=== PATIENT | male | born 1995 | race Caucasian/White ===

== ENCOUNTER 2018-10-06 10:51 | Day surgery (SDC) | payer BC, OTHER ==
[~2018-10-06] VITALS: Ht 185.4 cm; Wt 66.5 kg
[2018-10-06 11:27] VITALS: BP 111/69
[2018-10-06] MEDS ORDERED: LACTATED RINGERS 1,000 ML IV SCH (11:29)
[2018-10-06] MEDS ORDERED: ACETAMINOPHEN 500 MG TABLET PO ONE (11:30)
[2018-10-06] MEDS ORDERED: ONDANSETRON ODT 8 MG PO ONE (11:30)
[2018-10-06] MEDS ORDERED: MIDAZOLAM 1 MG/ML, 2ML ONE (12:52)
[2018-10-06] MEDS ORDERED: FENTANYL PF 250 MCG/5ML ONE (12:52)
[2018-10-06] MEDS ORDERED: LIDOCAINE-MPF 2% ,5ML ONE (12:54)
[2018-10-06] MEDS ORDERED: EPINEPHRINE 1 MG/ML, 1ML ONE (12:54)
[2018-10-06] MEDS ORDERED: CEFAZOLIN 1,000 MG ONE ×2 (12:54)
[2018-10-06] MEDS ORDERED: PROPOFOL 10 MG/ML, 20ML ONE (12:54)
[2018-10-06] MEDS ORDERED: DEXAMETHASONE 4 MG/ML, 1ML ONE ×2 (12:54)
[2018-10-06] MEDS ORDERED: BUPIVACAINE/PF 0.5% ONE (12:54)
[2018-10-06] MEDS ORDERED: KETOROLAC 30 MG/1 ML ONE (12:55)
[2018-10-06] MEDS ORDERED: ONDANSETRON 2MG/ML, 2ML IV PRN (13:00)
[2018-10-06] MEDS ORDERED: LORazepam 2 MG/ML, 1ML IVPush PRN (13:00)
[2018-10-06] MEDS ORDERED: METOCLOPRAMIDE 5 MG/ML, 2ML IV PRN (13:00)
[2018-10-06] MEDS ORDERED: OXYcodone 5 MG/5 ML ORAL.SOL UDC PO PRN (13:00)
[2018-10-06] MEDS ORDERED: FENTANYL PF 100 MCG/2ML IV PRN (13:00)
[2018-10-06] MEDS ORDERED: hydrALAzine 20 MG/ML, 1ML IV PRN (13:00)
[2018-10-06] MEDS ORDERED: MEPERIDINE/PF 25MG/0.5ML IVPush PRN (13:00)
[2018-10-06] MEDS ORDERED: HYDROmorphone 2 MG/ML, 1ML IVPush PRN (13:00)
[2018-10-06] MEDS ORDERED: MEPERIDINE/PF 25MG/ML,1ML ONE (14:33)
[2018-10-06] MEDS ORDERED: OXYcodone 5 MG/5 ML ORAL.SOL UDC ONE (14:55)
== END 2018-10-06 16:15 | disposition home or self-care (01) ==
LOC: OR 10:51
PROVIDERS: ATTEND Orthopaedic Surgery
DX: S62.615A Displaced fracture of proximal phalanx of left ring finger, initial encounter for closed fracture (principal); Z72.89 Other problems related to lifestyle; F17.290 Nicotine dependence, other tobacco product, uncomplicated; V67.0XXA Driver of heavy transport vehicle injured in collision with fixed or stationary object in nontraffic accident, initial encounter; Y93.89 Activity, other specified; Y92.488 Other paved roadways as the place of occurrence of the external cause; Y99.8 Other external cause status
CPT/HCPCS: 26735; 73140; 76000; C1713; J0171; J0690; J1100; J1885; J2175; J2250; J2704; J3010; J7120; Q0162